=== PATIENT | male | born 2000 ===

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

== ENCOUNTER 2023-11-27 17:44 | Emergency (ER) | payer BC ==
[~2023-11-27] VITALS: Ht 180.3 cm; Wt 88.6 kg
[2023-11-27 18:06] VITALS: BP 146/82; TEMP 97.9
[2023-11-27] MEDS ORDERED: Tdap Vaccine 0.5 ML SYRINGE IM ONE (20:45)
[2023-11-27] MEDS ORDERED: Cephalexin 500 MG CAP PO ONE (21:15)
[2023-11-27] MEDS ORDERED: CEPHALEXIN500 M1 PO (21:18)
[2023-11-27 21:30] VITALS: PULSE 86
== END 2023-11-27 21:30 | disposition home or self-care (01) ==
LOC: COL.ER 17:44
DX: S61.211A Laceration without foreign body of left index finger without damage to nail, initial encounter (principal); W26.0XXA Contact with knife, initial encounter